=== PATIENT | male | born 1955 | race Caucasian/White ===

== ENCOUNTER 2020-01-10 14:41 | Emergency (ER) | payer MEDICARE, MEDICAID ==
[~2020-01-10] VITALS: Ht 180.3 cm; Wt 104.3 kg
[~2020-01-10 14:41] MED LIST: DIOVAN160 MG ORAL; KLONOPIN0.5 MG ORAL; METOPROLOL TART25 MG ORAL; PROTONIX40 MG ORAL; SIMVASTATIN5 MG ORAL; SINGULAIR10 MG ORAL
--- NOTE | 2020-01-10 15:06 | Emergency Room Report ---
History of Present Illness General Chief Complaint: Abnormal Labs Source: Patient Present Illness HPI Patient with history of diabetes and hypertension presents with high blood sugar. He reports that he took his blood sugar at home prior to arrival and it was 555. Prior to that he says he was eating a lot of fruits. He also received a call right after from his PCP to inform him that the blood tests he took 2 days ago also revealed very high blood sugar and that he should go to the emergency room. Patient denies any symptoms- denies dizziness, vomiting, any pain. No cough, sore throat, other viral symptoms. Patient is compliant with his Metformin 1000 mg twice daily. He admits that he was prescribed Farxiga a few months ago but did not pick it up because it was too expensive. Allergies: Coded Allergies: No Known Allergies (Unverified , 03/29/15) COVID-19 Screening Contact w/high risk pt: No Experienced COVID-19 symptoms?: No COVID-19 Testing performed POLYMERIZATION ENGINEER: No Patient History Past Medical History: see triage record Reviewed Nursing Documentation: PMH: Agreed; PSxH: Agreed Nursing Documentation-PMH Past Medical History: No History, Except For Hx Cardiac Problems: No - Psoriosis Hx Hypertension: Yes Hx Pacemaker: No Hx Asthma: Yes Hx COPD: No Hx Diabetes: Yes - Pre-diabetic Hx Cancer: No Hx Gastrointestinal Problems: No Hx Dialysis: No History Of Psychiatric Problem: Yes - depression Hx Neurological Problems: No Hx Cerebrovascular Accident: No Hx Seizures: No Review of Systems All Other Systems: negative except mentioned in HPI Physical Exam Vital Signs Date Time Temp Pulse Resp B/P (MAP) Pulse Ox O2 Delivery O2 Flow Rate FiO2 01/10/20 14:48 100.0 96 17 156/99 (118) 98 Room Air Sp02 EP Interpretation: reviewed, normal General Appearance: normal inspection, well appearing, no apparent distress, alert, GCS 15, non-toxic ENT: EOM grossly intact, normal pharynx, normal voice, TMs + canals normal, uvula midline Neck: normal inspection, full range of motion, supple, thyroid normal, no meningismus, no bony tend Respiratory: chest non-tender, lungs clear, normal breath sounds, no respiratory distress Cardiovascular #1: normal peripheral pulses, regular rate, rhythm Gastrointestinal: normal inspection, normal bowel sounds, non tender, soft, no mass, no organomegaly, no guarding, no rebound Genitourinary: no CVA tenderness Musculoskeletal: normal inspection, normal range of motion, no calf tenderness, gait/station normal, non-tender Neurologic: alert, motor strength/tone normal, eating disorder psychologist III-XII nml as tested, oriented x3, sensory intact, speech normal Psychiatric: judgement/insight normal, mood/affect normal Skin: no rash, normal color, warm/dry Lymphatic: no adenopathy Medical Decision Making PA Attestation Dr. Tavarez is my supervising physician whom patient management and care has been discussed with. Diagnostic Impression: Primary Impression: Hyperglycemia due to diabetes mellitus ER Course Pt. presents to the ED c/o elevated blood sugar at 555. Asymptomatic. Ddx considered but are not limited to hypoglycemia, hyperosmolar hyperglycemia, DKA. Vital signs: low grade fever at 100, no symptoms to suggest infection, given Tylenol H&PE are most consistent with hyperglycemia ORDERS/ED INTERVENTIONS: Lab reveals glucose 474. No evidence of DKA. Patient given 2 L IV NS and 10 units subcutaneous insulin. DISCHARGE: Patient observed in the emergency room after interventions glucose decreased to 295. Well-appearing, nontoxic, no acute distress. At this time pt. is stable for d/c to home. Will provide printed patient care instructions, and any necessary prescriptions. Advised to take all of his medications as prescribed by his PCP. Advised to follow up outpatient in 1-2 days. Care plan and follow up instructions have been discussed with the patient prior to discha rge. Strict return precautions given. Laboratory Tests Test 01/10/20 15:13 White Blood Count 14.3 K/UL (4.8-10.8) H Red Blood Count 4.66 M/UL (4.70-6.10) L Hemoglobin 14.2 G/DL (14.2-18.0) Hematocrit 41.7 % (42.0-52.0) L Mean Corpuscular Volume 89 FL (80-99) Mean Corpuscular Hemoglobin 30.4 PG (27.0-31.0) Mean Corpuscular Hemoglobin Concent 34.0 G/DL (32.0-36.0) Red Cell Distribution Width 12.3 % (11.6-14.8) Platelet Count 295 K/UL (150-450) Mean Platelet Volume 7.8 FL (6.5-10.1) Neutrophils (%) (Auto) 69.8 % (45.0-75.0) Lymphocytes (%) (Auto) 24.0 % (20.0-45.0) Monocytes (%) (Auto) 4.3 % (1.0-10.0) Eosinophils (%) (Auto) 1.1 % (0.0-3.0) Basophils (%) (Auto) 0.9 % (0.0-2.0) Urine Color Pale yellow Urine Appearance Clear Urine pH 5 (4.5-8.0) Urine Specific Elliott 1.010 (1.005-1.035) Urine Protein 2+ (NEGATIVE) H Urine Glucose (UA) 4+ (NEGATIVE) H Urine Ketones Negative (NEGATIVE) Urine Blood Negative (NEGATIVE) Urine Nitrite Negative (NEGATIVE) Urine Bilirubin Negative (NEGATIVE) Urine Urobilinogen Normal MG/DL (0.0-1.0) Urine Leukocyte Esterase Negative (NEGATIVE) Urine RBC 0-2 /HPF (0 - 0) H Urine WBC 0 /HPF (0 - 0) Urine Squamous Epithelial Cells Occasional /LPF Urine Bacteria Few /HPF (NONE) Urine Mucus Moderate /LPF (NONE/OCC) H Sodium Level 133 MMOL/L (136-145) L Potassium Level 4.7 MMOL/L (3.5-5.1) Chloride Level 96 MMOL/L (98-107) L Carbon Dioxide Level 26 MMOL/L (21-32) Blood Urea Nitrogen 17 mg/dL (7-18) Creatinine 1.4 MG/DL (0.55-1.30) H Estimated Glomerular Filtration Rate 51.2 mL/min (>60) Glucose Level 474 MG/DL (74-106) H Calcium Level 9.4 MG/DL (8.5-10.1) Total Bilirubin 0.7 MG/DL (0.2-1.0) Aspartate Amino Transferase (AST) 44 U/L (15-37) H Alanine Aminotransferase (ALT) 122 U/L (12-78) H Alkaline Phosphatase 107 U/L (46-116) Total Protein 7.4 G/DL (6.4-8.2) Albumin 3.8 G/DL (3.4-5.0) Globulin 3.6 g/dL Albumin/Globulin Ratio 1.1 (1.0-2.7) Last Vital Signs Date Time Temp Pulse Resp B/P (MAP) Pulse Ox O2 Delivery O2 Flow Rate FiO2 01/10/20 14:48 100.0 96 17 156/99 (118) 98 Room Air Disposition: HOME, SELF-CARE Condition: Stable Scripts Blood Sugar Diagnostic (ONE TOUCH ULTRA TEST STRIPS) 1 Each Strip 1 EACH NEEDED PRN for Hyperglycemia, #50 STRIP Prov: Maricarmen Fay NJosey PJoseyAJosey 01/10/20 Maricarmen Fay PIla Jan 10, 2020 15:06
[2020-01-10 15:13] VITALS: BP 156/99
[2020-01-10] MEDS ORDERED: Acetaminophen 500mg (ES) tab ORAL ONE (15:30)
[2020-01-10 15:35] LABS: APPEARANCE,URINE CLEAR; BILIRUBIN, URINE NEGATIVE (NEGATIVE); COLOR,URINE PALE YELLOW; GLUCOSE, URINE (UA) 4+ (NEGATIVE); KETONES,URINE NEGATIVE (NEGATIVE); LEUKOCYTE ESTERASE ,URINE NEGATIVE (NEGATIVE); NITRITE,URINE NEGATIVE (NEGATIVE); PH,URINE 5 (4.5-8.0); PROTEIN,URINE 2+ (NEGATIVE); UROBILINOGEN,URINE NORMAL MG/DL (0.0-1.0)
[2020-01-10 15:44] LABS: BASOPHILS % (AUTO) 0.9 % (0.0-2.0); EOSINOPHILS % (AUTO) 1.1 % (0.0-3.0); HEMATOCRIT 41.7 % (42.0-52.0); HEMOGLOBIN 14.2 G/DL (14.2-18.0); MEAN CORPUSCULAR VOLUME 89 FL (80-99); MONOCYTES % (AUTO) 4.3 % (1.0-10.0); NEUTROPHILS % (AUTO) 69.8 % (45.0-75.0); PLATELET COUNT 295 K/UL (150-450); RED BLOOD COUNT 4.66 M/UL (4.70-6.10); RED CELL DISTRIBUTION WIDTH 12.3 % (11.6-14.8); WHITE BLOOD COUNT 14.3 K/UL (4.8-10.8)
[2020-01-10 15:51] LABS: ALANINE AMINOTRANSFERASE 122 U/L (12-78); ALBUMIN 3.8 G/DL (3.4-5.0); ALBUMIN/GLOBULIN RATIO 1.1 (1.0-2.7); ALKALINE PHOSPHATASE 107 U/L (46-116); ASPARTATE AMINO TRANSFERASE 44 U/L (15-37); BILIRUBIN,TOTAL 0.7 MG/DL (0.2-1.0); BLOOD UREA NITROGEN 17 mg/dL (7-18); CALCIUM 9.4 MG/DL (8.5-10.1); CARBON DIOXIDE 26 MMOL/L (21-32); CHLORIDE 96 MMOL/L (98-107); CREATININE 1.4 MG/DL (0.55-1.30); POTASSIUM 4.7 MMOL/L (3.5-5.1); SODIUM 133 MMOL/L (136-145)
[2020-01-10] MEDS ORDERED: Insulin Human Regular 100units/ml 3ml SUBQ ONE (16:00)
[2020-01-10] MEDS ORDERED: ONE TOUCH ULTR1 EACH MC (17:27)
[2020-01-10 17:34] VITALS: BP 150/92
== END 2020-01-10 17:34 | disposition home or self-care (01) ==
LOC: EMR 15:05
DX: E11.65 Type 2 diabetes mellitus with hyperglycemia (principal); J45.909 Unspecified asthma, uncomplicated; I10 Essential (primary) hypertension; Z79.899 Other long term (current) drug therapy
CPT/HCPCS: 36415; 80053; 81003; 85025; 96360; 96361; 96372; 99284; J1815; J7030